=== PATIENT | female | born 1955 | race Caucasian/White ===

== ENCOUNTER 2021-03-20 16:54 | Observation (INO) | payer BC, MEDICARE ==
[~2021-03-20] VITALS: Ht 177.8 cm; Wt 96.9 kg
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
[2021-03-20] MEDS ORDERED: SODIUM CHLORIDE FLUSH 10ML SYR IVF ONE (18:00)
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
[2021-03-20 18:07] LABS: BASOPHILS % (AUTO) 1 % (0-1); EOSINOPHILS % (AUTO) 5 % (1-7); LYMPHOCYTES % (AUTO) 35 % (22-44); MEAN CORPUSCULAR HEMOGLOBIN 30.5 pg (27.0-34.8); MEAN CORPUSCULAR HGB CONC 33.7 g/dL (32.4-35.8); MEAN PLATELET VOLUME 8.3 fL (7.4-10.4); MONOCYTES % (AUTO) 7 % (2-9); NEUTROPHILS % (AUTO) 52 % (42-75); PLATELET COUNT 183 x10^3/uL (130-400); RED BLOOD COUNT 4.75 x10^6/uL (3.82-5.3); RED CELL DISTRIBUTION WIDTH 12.8 % (9.6-15.2)
[2021-03-20 18:19] LABS: ALBUMIN 3.4 g/dL (3.4-5.0); ANION GAP 8 mmol/L (5-15); CALCIUM 9.1 mg/dL (8.5-10.1); CHLORIDE 106 mmol/L (98-107)
[2021-03-20 18:25] LABS: ALANINE AMINOTRANSFERASE 18 U/L (12-78); ALKALINE PHOSPHATASE 72 U/L (45-117); BILIRUBIN,TOTAL 0.3 mg/dL (0.2-1.0); CREATININE 0.83 mg/dL (0.55-1.02); TROPONIN I < 0.015 ng/mL (0.000-0.045)
[2021-03-20] MEDS ORDERED: MELATONIN 5 MG TABLET PO PRN (20:30)
[2021-03-20] MEDS ORDERED: NITROGLYCERIN 0.4 MG BOTTLE (25 TABS) SL PRN (20:30)
[2021-03-20] MEDS ORDERED: DOCUSATE 100 MG CAPSULE PO PRN (20:30)
[2021-03-20] MEDS ORDERED: morphine SULFATE 10 MG/ML, 1ML IVPush PRN (20:30)
[2021-03-20] MEDS ORDERED: ACETAMINOPHEN 325 MG TABLET PO PRN (20:30)
[2021-03-20] MEDS: HEPARIN 5,000 UNITS/ML, 1ML SQ SCH (21:17)
[2021-03-20] MEDS ORDERED: ASPI-696 PO (21:30)
[2021-03-20] MEDS ORDERED: METF10007 PO (21:30)
[2021-03-20] MEDS ORDERED: ALPR0.5T PO (21:30)
[2021-03-20] MEDS ORDERED: ESCI10TA97 PO (21:30)
[2021-03-20] MEDS ORDERED: METO50TA6 PO (21:30)
[2021-03-20 21:32] LABS: TROPONIN I < 0.015 ng/mL (0.000-0.045)
[2021-03-20 22:39] VITALS: BP 131/83
[2021-03-21 01:05] VITALS: BP 120/81
[2021-03-21 02:53] LABS: TROPONIN I < 0.015 ng/mL (0.000-0.045)
[2021-03-21] MEDS: HEPARIN 5,000 UNITS/ML, 1ML SQ SCH ×2 (06:12→13:30)
[2021-03-21 06:32] VITALS: BP 125/79
[2021-03-21] MEDS ORDERED: ASPIRIN 81 MG TABLET CHEW PO SCH (09:00)
[2021-03-21] MEDS ORDERED: metFORMIN 500 MG TABLET PO SCH (09:00)
[2021-03-21] MEDS ORDERED: METOPROLOL TARTRATE 50 MG TAB PO SCH (09:00)
[2021-03-21] MEDS ORDERED: TEMPLATE NON-FORMULARY MED. (Metformin HCl 1,000 MG) PO SCH (09:00)
[2021-03-21] MEDS ORDERED: ESCITALOPRAM 10MG TABLET PO SCH (09:00)
[2021-03-21] MEDS: SACUBITRIL/VALSARTAN 24MG-26MG TAB PO SCH ×2 (09:52→16:10)
[2021-03-21] MEDS: INSULIN LISPRO 100 UNITS/ML, PEN SQ-INSULIN SCH ×2 (12:45→17:46)
[2021-03-21 13:31] VITALS: BP 115/77
[2021-03-21 16:10] VITALS: BP 128/81
[2021-03-21] MEDS ORDERED: SACU1TAB PO (16:18)
[2021-03-21] MEDS ORDERED: SACUBITRIL/VALSARTAN 24MG-26MG TAB PO SCH (21:00)
== END 2021-03-21 18:02 | disposition home or self-care (01) ==
LOC: ED 19:03 → EDIP 19:19 → INTOOBSV 19:19 → 5SO 20:28
PROVIDERS: ADMIT Family Medicine; ATTEND Internal Medicine
DX: R07.89 Other chest pain (principal); I11.0 Hypertensive heart disease with heart failure; I50.9 Heart failure, unspecified; E11.9 Type 2 diabetes mellitus without complications; I25.110 Atherosclerotic heart disease of native coronary artery with unstable angina pectoris; I25.2 Old myocardial infarction; E66.9 Obesity, unspecified; Z88.0 Allergy status to penicillin; Z79.899 Other long term (current) drug therapy; Z79.82 Long term (current) use of aspirin; Z79.84 Long term (current) use of oral hypoglycemic drugs; Z95.5 Presence of coronary angioplasty implant and graft
CPT/HCPCS: 36415; 71045; 80053; 82962; 83880; 84443; 84484; 85025; 85379; 93005; 96372; 99285; G0378; J1644; J1815